=== PATIENT | female | born 1955 | race Caucasian/White ===

== ENCOUNTER 2018-02-18 23:59 | Emergency (ER) | payer OTHER ==
[2018-02-19] MEDS ORDERED: FAMOTIDINE 20 MG/50 ML IVPB 20 MG/50 ML MG IVPB ONE ×2 (00:43→01:11)
--- NOTE | 2018-02-19 00:43 | PDOC ---
History of Present Illness - General Stated Complaint: SOB CANT SWALLOW Time Seen by Provider: 02/19/18 00:27 History Source: Patient Exam Limitations: No Limitations - History of Present Illness Initial Comments: 02/19/18 00:28 [id number] with h/o anxiety, T&A distantly, asthma, many medical allergies and environmental allergies, mitral valve prolapse, irritable bowel syndrome who p/ w hoarseness, throat closing sensation amd sensation that she is unable to swallow for the past day, worsening over the past few hours. She notes one prior episode of similar symptoms which was diagnosed as laryngitis. She feels like she is getting a URI lately and has had multiple sick contacts. She denies f/c/n/v/d/c, chest pain, wheezing, abdominal pain, or other symptoms. She took one clindamycin today from a prior prescription but no other meds for the symptoms. Past History - Past Medical History Allergies/Adverse Reactions: Allergies Allergy/AdvReac Type Severity Reaction Status Date / Time codeine Allergy Severe Difficulty Verified 02/19/18 00:49 Breathing shellfish derived Allergy Severe Difficulty Verified 02/19/18 00:49 Breathing Home Medications: Ambulatory Orders Nitrofurantoin Monohyd/M-Cryst [Macrobid] 100 mg PO BID #14 capsule 08/21/12 No Home Medications 0 dose .ROUTE UTDICT 08/21/12 Ondansetron [Zofran *Odt*] 4 mg SL TID PRN #5 od.tablet 08/21/12 Tramadol HCl [Ultram] 50 mg PO BID PRN #8 tablet 08/21/12 Cardiac Disorders: Yes (MVP) - Suicide/Smoking/Psychosocial Hx Smoking Status: No Smoking History: Never smoked Number of Cigarettes Smoked Daily: 0 Review of Systems - Review of Systems Able to Perform ROS?: Yes Comments:: 02/19/18 00:51 GEN: no fever, chills, malaise, generalized weakness, or weight change HEENT: throat closing sensation, sore throat, hoarse, no ear pain, vision change , or eye pain CV: no chest pain, palpitations, lightheadedness, syncope, or edema RESP: no cough, no wheezing GI: no abdominal pain, nausea, vomiting, diarrhea, constipation, or white/black/ bloody stool : no dysuria, hematuria, incontinence, retention, bleeding, or discharge MSK: no neck/back pain, muscle weakness/pain, or joint swelling/pain NEURO: no headache, seizure, vertigo, numbness, tingling, or focal weakness PSYCH: anxious, no substance use, no behavior change SKIN: mild rash to chest wall, no jaundice ROS otherwise negative except as noted in HPI *Physical Exam - Vital Signs Initial Vital Signs Temp Pulse Resp BP Pulse Ox 97.9 F 100 H 16 152/86 95 02/19/18 00:05 02/19/18 00:05 02/19/18 00:05 02/19/18 00:05 02/19/18 00:05 - Physical Exam Comments: 02/19/18 00:55 GENERAL: anxious but well-appearing, morbidly obese, A/Ox4, answers questions appropriately, daughter at bedside HEENT: +posterior pharyngeal and soft palate erythema, tonsils absent, no raised tongue, no ttp floor of mouth, posterior pharynx patent grossly, voice is hoarse, PERRLA, EOMI, moist mucous membranes NECK/BACK: no midline ttp, no spinal stepoff or deformity, no hematoma, full ROM , neck supple CARDIOVASCULAR: regular rate/rhythm, normal S1S2, no MGR, strong peripheral pulses, capillary refill <2 seconds, extremities wwp, no edema LUNGS/RESPIRATORY: no respiratory distress, CTAB GI/ABDOMEN: symmetric [id number], normoactive BS, soft, no ttp, no midline pulsatile masses : no CVA tenderness EXTREMITIES: no muscle atrophy, no acute deformity, no edema SKIN: mild erythematous rash noted to right anterior superior chest wall, otherwise skin is warm and dry, no pallor, no jaundice, no rash, no bruising, no skin breakdown, no cuts, no lesions NEUROLOGICAL: GCS 15, CN II-XII grossly intact, 5/5 strength proximally and distally, no facial droop Medical Decision Making - Medical Decision Making 02/19/18 01:05 Adult female patient p/w throat closing sensation, hoarseness. Initial Vital Signs Temp Pulse Resp BP Pulse Ox 97.9 F 100 H 16 152/86 95 02/19/18 00:05 02/19/18 00:05 02/19/18 00:05 02/19/18 00:05 02/19/18 00:05 Exam: As noted in Physical Exam section. DDX IBNLT: allergic rxn/angioedema, anaphylaxis, contact dermatitis, BLOCKER HAND, RPA, laryngitis, tracheitis, esophagitis, GERD, dysphagia, ACS, tracheal/esophageal trauma, etc. W/U ordered: XR soft tissue neck, CXR TX ordered: Rin Scales CXR: CT: Labs: Reassessment: Repeat VS: DISCHARGE This patient has gotten significant relief of symptoms while in the ED. On last reassessment, vitals are wnl, pain is reasonably controlled, and exam is benign. Workup is not concerning for emergency-level pathology at this time. This patient is appropriate for discharge with close outpatient follow up. They are comfortable with this plan and will follow up with their primary care provider in 1-3 days. Specific return precautions are discussed and they will come back to the ER if necessary. *DC/Admit/Observation/Transfer Diagnosis at time of Disposition: Sore throat - Discharge Dispostion Disposition: HOME Condition at time of disposition: Stable Decision to Admit order: No - Referrals - Patient Instructions Additional Instructions: You were seen in the ER for throat discomfort and hoarseness. We did an exam and imaging studies, and gave you medications. After our assessment, we do not believe you are having a medical emergency at this time, and we believe you are safe to go home. Please follow up with your primary care provider in 1-3 days. Call their clinic, tell them you were seen in the ER, and tell them you need a follow-up. Use the Magic Mouthwash which we are giving you. If you have any new or worsening symptoms, especially inability to breath, inability to swallow at all, drooling, inability to open your jaw, or other symptoms, please come back to the ER at any time (24 hours a day). If you are having severe or life threatening symptoms, or symptoms that make it unsafe to drive or have someone drive you, please call 911. You vital signs were: Blood pressure 152/85 Heart rate 100 Pulse oxygenation 95 Temperature 97.9 Respiratory rate 16 - Post Discharge Activity
--- NOTE | 2018-02-19 00:53 | PDOC ---
Attending Attestation - Resident Resident Name: Tata Cruz - ED Attending Attestation I have performed the following: I have examined & evaluated the patient, The case was reviewed & discussed with the resident, I agree w/resident's findings & plan, Exceptions are as noted - HPI HPI: 02/19/18 00:44 62y F hx of anxiety, asthma, multiple allergies, presents with complaint of sensation of throat pain for the past 3 days. It started off as mild soreness associated with sneezing. Since then she has had more severe sore throat difficult to swallow. denies any fever, cough, nasal congestion. +sick contcts with office mates with viral illnessess. - Physicial Exam PE: 02/19/18 01:40 GENERAL: The patient is awake, alert, and fully oriented, Nontoxic - in no acute distress. HEAD: Normocephalic, atraumatic. ENT: Normal voice, Moist mucous membranes. erythemadous and ulcerations in the posterior pharynx/soft palate, symmetric, patent, no stridor, no fullness. NECK: Normal range of motion, supple LUNGS: Breath sounds equal, clear to auscultation bilaterally. No wheezes, no rhonchi, no rales. HEART: Regular rate and rhythm, normal S1 and S2 without murmur, rub or gallop. - Medical Decision Making 02/19/18 01:41 suspect herpangina vs other viral illness will treat with mgic mouthwash no stridor, respiratory distress will dc with pmd fu return precautions were discussed
[2018-02-19 00:55] VITALS: BP 152/86; PULSE 100; TEMP 97.9; BMI 36.8
[2018-02-19] MEDS ORDERED: MAG HYDROX/ALH/SMC/DPHA/LIDO 240 ML MOUTHWASH MM SCH (06:00)
== END 2018-02-19 03:16 | disposition home or self-care (01) ==
LOC: JER 23:59
PROC: 3E033GC Introduction of Other Therapeutic Substance into Peripheral Vein, Percutaneous Approach (ICD-10-PCS; principal; 2018-02-18)
PROC: 3E033GC Introduction of Other Therapeutic Substance into Peripheral Vein, Percutaneous Approach (ICD-10-PCS; 2018-02-18)
DX: J02.9 Acute pharyngitis, unspecified (principal); R21 Rash and other nonspecific skin eruption
CPT/HCPCS: 70360-TC-FY; 71045-TC-FY; 99281-25

== ENCOUNTER → 2018-11-04 | Day surgery (SDC) | payer OTHER ==
--- NOTE | 2018-11-05 12:45 | PATH ---
Surgical Pathology Report Patient Name: ROSALINDA SIMONS [facility]. Rec. #: [id number] /Age/Gender: 1955 (Age: 63) / F Account: [id number] Location: [facility] Taken: 11/04/2018 Received: 11/04/2018 Reported: 11/05/2018 Physicians: Mohamud Rolon M.D. Specimen(s) Received A: RIGHT BREAST SPECIMEN - WITH CALCIFICATIONS B: RIGHT BREAST SPECIMEN - WITHOUT CALCIFICATIONS Clinical History Non-palpable lesion Mammographic findings: suspicious microcalcification Final Diagnosis A. BREAST, RIGHT, WITH CALCIFICATIONS, STEREOTACTIC BIOPSY: BENIGN BREAST TISSUE SHOWING FIBROADENOMA WITH ASSOCIATED COARSE STROMAL CALCIFICATIONS. B. BREAST, RIGHT, WITHOUT CALCIFICATIONS, STEREOTACTIC BIOPSY: BENIGN BREAST TISSUE. Electronically Signed Celia Mcdaniels M.D. Gross Description A. Received in formalin, labeled "right breast with calcifications" are four cores of yellow-rubi tissue, ranging from 1.8-6.2 cm in length with a diameter up to 0.3 cm. Entirely submitted in two cassettes. B. Received in formalin, labeled "right breast without calcification" is a 2.5 x 1.8 x 0.3 cm aggregate of yellow-rubi cores and tissue. Entirely submitted in two cassettes. Time to formalin fixation: 5 minutes. Total formalin fixation time: Approximately 7 hours AE/11/04/2018 ebram/11/04/2018
== END | disposition home or self-care (01) ==
LOC: FMAMMOTONE 11:03
PROVIDERS: ATTEND Internal Medicine
PROC: 0HBT3ZX Excision of Right Breast, Percutaneous Approach, Diagnostic (ICD-10-PCS; principal; 2018-11-04)
DX: D24.1 Benign neoplasm of right breast (principal); N64.89 Other specified disorders of breast; R92.1 Mammographic calcification found on diagnostic imaging of breast
CPT/HCPCS: 19081; 87899; 88305-TC; A4648